=== PATIENT | male | born 1965 | race Caucasian/White ===

== ENCOUNTER 2018-11-07 10:15 | Day surgery (SDC) | payer OTHER ==
[2018-11-04 08:52] VITALS: BMI 28.5
[~2018-11-07 10:15] MED LIST: LACTATED RINGERS 1,000 ML IV SCH; LIDOCAINE 1% 20 ML VIAL (10MG/ML) FOR IV START INTRADERMA PRN
[2018-11-07 11:09] VITALS: TEMP 98.6
[2018-11-07] MEDS ORDERED: PROPOFOL 10 MG/ML 20 ML VIAL IV ONE (11:44)
[2018-11-07] MEDS ORDERED: LIDOCAINE 1% INJ 10MG/ML (20 ML MDV) ONE (11:44)
--- NOTE | 2018-11-07 12:19 | P.PCN ---
Date of Procedure: 11/07/18 Procedure(s) Performed: Procedure: Total colonoscopy. Preoperative diagnosis: Screening for neoplasia . Postoperative diagnosis: Sigmoid diverticulosis with no evidence of acute diverticulitis, strictures, polyps or cancer. Preparation: HalfLytely prep. Sedation: Was provided by anesthesia. Brief clinical history: The patient is a 53-year-old male who is scheduled for this evaluation for screening for neoplasia age being his risk factor. There is no family history of colon cancer. The patient has no abdominal complaints, bleeding or anemia. This would be his first colonoscopy. Procedure: With the patient on his left lateral decubitus position and after informed consent and adequate sedation, the perianal area was inspected and it did not show any fissures or fistulas. There were no masses felt on digital rectal examination. The Olympus CFH 190L video colonoscope was then inserted in the rectum in the usual fashion and advanced to the cecum. There were multiple diverticular orifices seen scattered the sigmoid with no evidence of acute diverticulitis or strictures. No polyps or tumors were seen. I retroflexed the endoscope in the rectum before the endoscope was withdrawn. The patient tolerated the procedure well. Plan: The patient was reassured. Discussed dietary measures. He will follow up with you as planned and I recommended repeat exam in 10 years.
[2018-11-07 12:29] VITALS: BP 116/86; PULSE 70; RESP 18
== END 2018-11-07 12:39 | disposition home or self-care (01) ==
LOC: ORWHC2ENDO 10:15
DX: Z12.11 Encounter for screening for malignant neoplasm of colon (principal); K57.30 Diverticulosis of large intestine without perforation or abscess without bleeding; M19.90 Unspecified osteoarthritis, unspecified site; I10 Essential (primary) hypertension; E78.5 Hyperlipidemia, unspecified; Z79.82 Long term (current) use of aspirin; Z79.899 Other long term (current) drug therapy
CPT/HCPCS: J2001; J2704; G0121; 45378

== ENCOUNTER 2023-12-15 15:46 | Observation (INO) | payer OTHER ==
[2023-12-15 16:10] VITALS: TEMP 97.9
[2023-12-15 16:48] LABS: Basophils % (A) 0 %; Eosinophils # (A) 0.1 k/uL (0-0.7); Eosinophils % (A) 1 %; HCT 45.9 % (39.0-53.0); HGB 15.8 gm/dL (13.0-17.5); Lymphocytes % (A) 22 %; MCH 31.9 pg (25.0-35.0); MCHC 34.3 g/dL (31.0-37.0); MCV 92.9 fL (80.0-100.0); Mean Platelet Volume 7.2; Monocytes # (A) 0.8 k/uL (0-1.0); Monocytes % (A) 8 %; Neutrophils % (A) 66 %; Platelet Count 298 k/uL (150-450); RBC 4.94 m/uL (4.30-5.90); RDW 12.5 % (11.5-15.5); WBC 9.2 k/uL (3.8-10.6)
--- NOTE | 2023-12-15 16:52 | ED ---
Chest Pain HPI - General Source: patient, RN notes reviewed Mode of arrival: ambulatory Limitations: no limitations <Debbie Lindquist - Last Filed: 12/15/23 16:51> <Christiano Diggs - Last Filed: 12/15/23 22:27> - General Chief Complaint: Chest Pain Stated Complaint: chest pain Time Seen by Provider: 12/15/23 16:00 - History of Present Illness Initial Comments: Quick Note-this is a 58-year-old female presents emergency department chief complaint of chest tightness and pain over the past 2 days. He states this pain has been constant but is worsened over the past few hours. He states that this radiates into his back. He endorses pleuritic chest pain as well. He has history of hypertension, high cholesterol, and smokes roughly a pack a day. Denies personal history of heart attack or stroke. (Debbie Lindquist) Dictation was produced using [employer] dictation software. please excuse any gr ammatical, word or spelling errors. Chief Complaint: 58-year-old male presents with chest pain History of Present Illness: Patient is 50-year-old male presents emergency department chest pain. Patient states that today he had an episode of chest pressure that was associated with diaphoresis and nausea. Patient allegedly had a recent CT that was done for his lungs that there was incidental findings of severe coronary artery calcifications. 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 Today he had this chest pressure. States that it resolved while he was waiting in the ER. Patient is pain-free at the bedside. Patient has history of tobacco use. No other comorbidities noted. Denies any family history of heart attacks. The ROS documented in this emergency department record has been reviewed and confirmed by me. Those systems with pertinent positive or negative responses have been documented in the HPI. All other systems are other negative and/or noncontributory. (Christiano Diggs) - Related Data Home Medications Medication Instructions Recorded Confirmed Aspirin [Adult Low Dose Aspirin EC] 81 mg PO DAILY 07/17/16 11/07/18 Nebivolol HCl [Bystolic] 10 mg PO 1500 10/06/18 11/04/18 Simvastatin 40 mg PO 1500 10/06/18 11/04/18 Allergies Allergy/AdvReac Type Severity Reaction Status Date / Time No Known Allergies Allergy Verified 12/15/23 16:10 Review of Systems ROS Other: All systems not noted in ROS Statement are negative. <Debbie Lindquist - Last Filed: 12/15/23 16:51> ROS Other: All systems not noted in ROS Statement are negative. <Christiano Diggs - Last Filed: 12/15/23 22:27> ROS Statement: Those systems with pertinent positive or pertinent negative responses have been documented in the HPI. Past Medical History Past Medical History: Hyperlipidemia, Hypertension, Osteoarthritis (OA) History of Any Multi-Drug Resistant Organisms: None Reported Additional Past Surgical History / Comment(s): SX FOR DEVIATED SEPTUM, PILONOIDAL CYST. Past Anesthesia/Blood Transfusion Reactions: No Reported Reaction Past Psychological History: No Psychological Hx Reported Smoking Status: Current every day smoker Past Alcohol Use History: Daily Past Drug Use History: Marijuana - Past Family History Mother Family Medical History: Cancer, CVA/TIA Additional Family Medical History / Comment(s): BREAST CANCER. <Debbie Lindquist - Last Filed: 12/15/23 16:51> General Exam Limitations: no limitations <Debbie Lindquist - Last Filed: 12/15/23 16:51> <Christiano Diggs - Last Filed: 12/15/23 22:27> - General Exam Comments Initial Comments: Visual Physical Exam Vital signs reviewed General: Well-appearing, nontoxic, no acute distress. Head: Normocephalic, atraumatic Eyes: PERRLA, EOMI ENT: Airway patent Chest: Nonlabored breathing Skin: No visual rash, normal skin tone Neuro: Alert and oriented 3 Musculoskeletal: No gross abnormalities (Debbie Lindquist) PHYSICAL EXAM: General Impression: Alert and oriented x3, not in acute distress HEENT: Normocephalic atraumatic, extra-ocular movements intact, pupils equal and reactive to light bilaterally, mucous membranes moist. Cardiovascular: Heart regular rate and rhythm Chest: Able to complete full sentences, no retractions, no tachypnea, diffuse lung rhonchi Abdomen: abdomen soft, non-tender, non-distended, no organomegaly Musculoskeletal: Pulses present and equal in all extremities, no peripheral edema Motor: no focal deficits noted Neurological: CN II-XII grossly intact, no focal motor or sensory deficits noted Skin: Intact with no visualized rashes Psych: Normal affect and mood (Christiano Diggs) Course Vital Signs 12/15/23 16:05 Temperature 97.9 F Pulse Rate 85 Respiratory 16 Rate Blood Pressure 144/92 O2 Sat by Pulse 99 Oximetry Chest Pain MDM <Debbie Lindquist - Last Filed: 12/15/23 16:51> <Christiano Diggs - Last Filed: 12/15/23 22:27> - MDM I completed the quick note portion of this chart signed Debbie Lindquist PA-C (Debbie Lindquist) Was pt. sent in by a medical professional or institution ([facility], [facility], urgent care, hospital, or [place] health care facility...) When possible be specific @ -No Did you speak to anyone other than the patient for history (EMS, parent, family, police, friend...)? What history was obtained from this source @ -No Did you review nursing and triage notes (agree or disagree)? Why? @ -I reviewed and agree with nursing and triage notes Were old charts reviewed (outside hosp., previous admission, EMS record, old EKG, old radiological studies, urgent care reports/EKG's, [place] health care facility records)? Report findings @ -No old charts were reviewed Differential Diagnosis (chest pain, altered mental status, abdominal pain women, abdominal pain men, vaginal bleeding, musculoskeletal, weakness, fever, dyspnea, syncope, headache, dizziness, GI bleed, back pain, seizure, CVA, palpatations, mental health)? @ -Differential Chest Pain: Stable Angina, Unstable Angina, STEMI, NSTEMI Aortic Dissection, Pneumothorax, Musculoskeletal, Esophageal Spasm GERD, Cholecystitis, Pancreatitis, Zoster, this is not meant to be an all-inclusive list. EKG interpreted by me (3pts min.). @ -My EKG interpretation: Ventricular rate 77, sinus rhythm,. 164, QRS 87, QTc 4 7. No VA prolongation, no QTC prolongation, no ST or T-wave changes noted. . Overall, this EKG is unremarkable X-rays interpreted by me (1pt min.). @ -Chest x-ray is nonacute CT interpreted by me (1pt min.). @ -None done U/S interpreted by me (1pt. min.). @ -None done What testing was considered but not performed or refused? (CT, X-rays, U/S, labs)? Why? @ -None What meds were considered but not given or refused? Why? @ -None Did you discuss the management of the patient with other professionals (professionals i.e. , PA, [employer], lab, RT, psych nurse, social science instructor, casino attendant, teacher, chief sales officer, welfare case worker)? Give summary @ -No Was smoking cessation discussed for >3mins.? @ -No Was critical care preformed (if so, how long)? @ -No Were there social determinants of health that impacted care today? How? (Homelessness, low income, unemployed, alcoholism, drug addiction, transportation, low edu. Level, literacy, decrease access to med. care, correction, rehab)? @ -No Was there de-escalation of care discussed even if they declined (Discuss DNR or withdrawal of care, Hospice)? DNR status @ -No What co-morbidities impacted this encounter? (DM, HTN, Smoking, COPD, CAD, Cancer, CVA, ARF, Chemo, Hep., AIDS, mental health diagnosis, sleep apnea, morbid obesity)? @ -None Was patient admitted / discharged? Hospital course, mention meds given and route, prescriptions, significant lab abnormalities, going to OR and other pertinent info. @ -50-year-old male presents emergency department with clinical presentation concerning for unstable angina. Vital signs upon arrival are within acceptable limits. EKG labs are unremarkable. Troponin is negative x 2. Chest x-ray is nonacute. Patient's heart score is high. He does have coronary artery disease will be admitted to observation consultation to cardiology. Undiagnosed new problem with uncertain prognosis? @ -No Drug Therapy requiring intensive monitoring for toxicity (Heparin, Nitro, Insulin, Cardizem)? @ -No Were any procedures done? @ -No Diagnosis/symptom? Acute, or Chronic, or Acute on Chronic? Uncomplicated (without systemic symptoms) or Complicated (systemic symptoms)? @ -Acute coronary syndrome Side effects of treatment? @ -No Exacerbation, Progression, or Severe Exacerbation? @ -No Poses a threat to life or bodily function? How? (Chest pain, USA, CT, pneumonia, PE, COPD, DKA, ARF, appy, cholecystitis, CVA, Diverticulitis, Homicidal, Suicidal, threat to staff... and all critical care pts) @ -yes (Christiano Diggs) Disposition <Debbie Lindquist - Last Filed: 12/15/23 16:51> Decision Time: 22:27 <Christiano Diggs - Last Filed: 12/15/23 22:27> Clinical Impression: ACS (acute coronary syndrome) Disposition: ADMITTED IP TO THIS HOSP Condition: Fair Referrals: Michael Wyman MD [Primary Care Provider] - 1-2 days
[2023-12-15 16:57] LABS: INR 0.9 (<1.2)
[2023-12-15 16:58] LABS: Partial Thromboplastin Time 23.4 sec (22.0-30.0); Prothrombin Time 10.1 sec (10.0-12.5)
[2023-12-15 16:59] LABS: ALT 31 U/L (4-49); African American GFR (CKD) >90 (>60 ml/min/1.73 sqM); Albumin 4.8 g/dL (3.5-5.0); Anion Gap 7 mmol/L; Blood Urea Nitrogen 26 mg/dL (9-20); Calcium 9.7 mg/dL (8.4-10.2); Carbon Dioxide 29 mmol/L (22-30); Chloride 103 mmol/L (98-107); Glucose 96 mg/dL (74-99); Non-African American GFR(CKD) >90 (>60 ml/min/1.73 sqM); Sodium 139 mmol/L (137-145); Total Bilirubin 1.1 mg/dL (0.2-1.3); Total Protein 7.6 g/dL (6.3-8.2)
[2023-12-15 17:12] LABS: AST 49 U/L (17-59); Alkaline Phosphatase 82 U/L (38-126)
[2023-12-15 17:13] LABS: Magnesium 2.2 mg/dL (1.6-2.3)
--- NOTE | 2023-12-15 20:52 | XR ---
EXAMINATION TYPE: XR chest 2V DATE OF EXAM: 12/15/2023 8:43 PM CLINICAL INDICATION:Male, 58 years old with history of Chest Pain; [facility] COMPARISON: None TECHNIQUE: XR chest 2V Frontal and lateral views of the chest. FINDINGS: Lungs/Pleura: There is no evidence of pleural effusion, focal consolidation, or pneumothorax. Pulmonary vascularity: Unremarkable. Heart/mediastinum: Cardiomediastinal silhouette is unremarkable. Musculoskeletal: No acute osseous pathology. IMPRESSION: No acute cardiopulmonary disease/process.
[2023-12-15] MEDS ORDERED: NITROGLYCERIN SL TABS 0.4 MG TAB SUBLINGUAL PRN (22:23)
[2023-12-15] MEDS: ASPIRIN 81 MG PO STA (22:52)
[2023-12-16] MEDS: ASPIRIN 325 MG TAB PO SCH (09:11)
[2023-12-16] MEDS: ASPIRIN 81 MG PO SCH (09:59)
[2023-12-16] MEDS: ATORVASTATIN 80 MG TAB PO SCH (10:14)
[2023-12-16] MEDS: LOSARTAN 50 MG TAB PO SCH (10:14)
[2023-12-16 10:51] LABS: Chol/HDL Ratio 3.25 Ratio; LDL Cholesterol,Calculated 87.4 mg/dL (0.0-131.0)
[2023-12-16] MEDS ORDERED: ACETAMINOPHEN TAB 325 MG TAB PO PRN (11:48)
--- NOTE | 2023-12-16 13:01 | P.CRDCN ---
History of Present Illness History of present illness: This is Dr. Greer dictating a consult on this patient The patient was interviewed and examined IMPRESSION / ASSESSMENT: Constant chest discomfort for 3 days in the setting of mild hypertension Known coronary artery disease by verbal description of coronary calcification by his on a CT scan that was done at an outside hospital Hypertension Dyslipidemia on statins with an LDL of 87 Current smoker PLAN: 2D echo and Doppler study to assess cardiac structure and function CTA to assess the aorta, thoracic, for dissection Maximize statins Angiotensin receptor blockers in addition to chlorthalidone for hypertension management If his 2D echo was normal and CTA does not show any evidence for aortic dissection, he may go home and follow-up with me as an outpatient He should be discharged on 80 mg of atorvastatin at least 50 mg of Cozaar a baby aspirin HPI Severe chest discomfort for the last 3 days No associated symptoms For serial cardiac enzymes were drawn and they are all normal Chest x-ray is normal Twelve-lead EKG normal no ST segment abnormalities Second twelve-lead EKG normal The patient complained of constant discomfort for the last 2 days which was wo rse for a few hours prior to presentation and radiated through into his back There was a pleuritic component He has hypertension dyslipidemia and he smokes a pack cigarettes a day He was told he had an incidental finding of severe coronary calcification ROS: No fever chills or rigors, no cough, phlegm or expectoration, no nausea, vomiting or diarrhea, no hematuria, dysuria, no musculoskeletal complaints, no strokes or seizures, no skin lesions. EXAMINATION: 144/92 mmHg pulse rate in the 80s afebrile Breath sounds are clear Heart sounds S1-S2 normal Patient looks comfortable No breathing trouble no orthopnea PND no lower extremity edema abdomen is soft nontender REVIEW OF LABS, ECG & MEDICAL DATA Normal white count Hemoglobin normal at 15,000 normal platelet count Sodium 139, potassium 4.0 BUN 26 and creatinine 0.9 4 serial troponins were drawn and they are all normal despite presenting with 3 days of severe chest discomfort Triglycerides 117, total cholesterol 160, LDL 87, HDL 49 Past Medical History Past Medical History: Hyperlipidemia, Hypertension, Osteoarthritis (OA) History of Any Multi-Drug Resistant Organisms: None Reported Additional Past Surgical History / Comment(s): SX FOR DEVIATED SEPTUM, PILONOIDAL CYST. Past Anesthesia/Blood Transfusion Reactions: No Reported Reaction Past Psychological History: No Psychological Hx Reported Smoking Status: Current every day smoker Past Alcohol Use History: Daily Past Drug Use History: Marijuana - Past Family History Mother Family Medical History: Cancer, CVA/TIA Additional Family Medical History / Comment(s): BREAST CANCER. Medications and Allergies Home Medications Medication Instructions Recorded Confirmed Type Aspirin [Adult Low Dose Aspirin EC] 81 mg PO HS 07/17/16 12/16/23 History Acetaminophen [Tylenol 8 Hour] 650 mg PO Q8H PRN 12/16/23 12/16/23 History Atorvastatin [Lipitor] 40 mg PO HS 12/16/23 12/16/23 History Chlorthalidone [Hygroton] 25 mg PO DAILY 12/16/23 12/16/23 History Nebivolol HCl [Bystolic] 20 mg PO HS 12/16/23 12/16/23 History Allergies Allergy/AdvReac Type Severity Reaction Status Date / Time No Known Allergies Allergy Verified 12/16/23 07:11 Physical Exam Vitals: Vital Signs Temp Pulse Resp BP Pulse Ox 12/16/23 10:17 67 18 130/91 97 12/16/23 07:36 73 19 141/94 96 12/16/23 02:00 70 18 110/70 98 12/15/23 16:05 97.9 F 85 16 144/92 99 Intake and Output 12/15/23 12/16/23 12/16/23 22:59 06:59 14:59 Other: Weight 86.183 kg Results 12/15/23 16:28 12/15/23 16:28 Cardiac Enzymes 12/15/23 12/15/23 12/15/23 Range/Units 16:28 16:28 21:12 AST 49 (17-59) U/L Troponin I <0.012 <0.012 (0.000-0.034) ng/mL 12/15/23 12/16/23 Range/Units 23:43 03:29 AST (17-59) U/L Troponin I <0.012 <0.012 (0.000-0.034) ng/mL Coagulation 12/15/23 Range/Units 16:28 PT 10.1 (10.0-12.5) sec APTT 23.4 (22.0-30.0) sec Lipids 12/16/23 Range/Units 03:29 Triglycerides 117.00 (0.00-149.00) mg/dL Cholesterol 160.00 (0.00-200.00) mg/dL HDL Cholesterol 49.20 (40.00-60.00) mg/dL Cholesterol/HDL Ratio 3.25 Ratio CBC 12/15/23 Range/Units 16:28 WBC 9.2 (3.8-10.6) k/uL RBC 4.94 (4.30-5.90) m/uL Hgb 15.8 (13.0-17.5) gm/dL Hct 45.9 (39.0-53.0) % Plt Count 298 (150-450) k/uL Comprehensive Metabolic Panel 12/15/23 Range/Units 16:28 Sodium 139 (137-145) mmol/L Potassium 4.0 (3.5-5.1) mmol/L Chloride 103 (98-107) mmol/L Carbon Dioxide 29 (22-30) mmol/L BUN 26 H (9-20) mg/dL Creatinine 0.89 (0.66-1.25) mg/dL Glucose 96 (74-99) mg/dL Calcium 9.7 (8.4-10.2) mg/dL AST 49 (17-59) U/L ALT 31 (4-49) U/L Alkaline Phosphatase 82 (38-126) U/L Total Protein 7.6 (6.3-8.2) g/dL Albumin 4.8 (3.5-5.0) g/dL Current Medications Generic Name Dose Route Start Last Admin Trade Name Freq PRN Reason Stop Dose Admin Acetaminophen 650 mg 12/16/23 11:48 Acetaminophen Tab 325 Mg Tab PO Q8H PRN Pain Aspirin 81 mg 12/17/23 09:00 Aspirin 81 Mg PO DAILY [facility] Atorvastatin Calcium 80 mg 12/16/23 09:30 12/16/23 10:14 Atorvastatin 80 Mg Tab PO 80 mg DAILY [facility] Administration Losartan Potassium 50 mg 12/16/23 09:45 12/16/23 10:14 Losartan 50 Mg Tab PO 50 mg DAILY [facility] Administration Intake and Output 12/15/23 12/16/23 12/16/23 22:59 06:59 14:59 Other: Weight 86.183 kg 12/15/23 16:28 12/15/23 16:28
[2023-12-16 13:14] VITALS: RESP 16
--- NOTE | 2023-12-16 13:26 | P.HPIM ---
History of Present Illness Patient is a 58-year-old male came with complaints of chest pain in the retrosternal area without any radiation shortness of breath or lightheadedness, going on for about 3 days patient still has a pain troponins are negative EKG did not show any acute ST-T wave changes. Patient blood pressure is well- controlled on nebivolol and chlorthalidone. Patient does not have any fever chills nausea vomiting abdominal pain troponins are negative. Patient chest pain is noncardiac in nature patient does have pain in the back as well with the tenderness in the back. Patient does smoke a pack of cigarettes a day. Patient chest pain is nonpleuritic not associate with food. REVIEW OF SYSTEMS: CONSTITUTIONAL: No fever, no malaise, no fatigue. HEENT: No recent visual problems or hearing problems. Denied any sore throat. CARDIOVASCULAR: No orthopnea, PND, no palpitations, no syncope. PULMONARY: No shortness of breath, no cough, no hemoptysis. GASTROINTESTINAL: No diarrhea, no nausea, no vomiting, no abdominal pain. NEUROLOGICAL: No headaches, no weakness, no numbness. HEMATOLOGICAL: Denies any bleeding or petechiae. GENITOURINARY: Denies any burning micturition, frequency, or urgency. MUSCULOSKELETAL/RHEUMATOLOGICAL: Denies any joint pain, swelling, or any muscle pain. ENDOCRINE: Denies any polyuria or polydipsia. The rest of the 14-point review of systems is negative. PHYSICAL EXAMINATION: GENERAL: The patient is alert and oriented x3, not in any acute distress. Well developed, well nourished. HEENT: Pupils are round and equally reacting to light. EOMI. No scleral icterus. No conjunctival pallor. Normocephalic, atraumatic. No pharyngeal erythema. No thyromegaly. CARDIOVASCULAR: S1 and S2 present. No murmurs, rubs, or gallops. PULMONARY: Chest is clear to auscultation, no wheezing or crackles. ABDOMEN: Soft, nontender, nondistended, normoactive bowel sounds. No palpable organomegaly. MUSCULOSKELETAL: No joint swelling or deformity. Patient does have tenderness in the lower thoracic and mid thoracic areas EXTREMITIES: No cyanosis, clubbing, or pedal edema. NEUROLOGICAL: Gross neurological examination did not reveal any focal deficits. SKIN: No rashes. Assessment and plan -Chest pain rule out acute coronary syndromes patient is undergoing echocardiogram if that within normal limits patient was cleared for discharge. We also obtain CT angio of the chest rule out pulmonary embolism and aortic dissection as recommended by cardiology. -Hypertension patient blood pressure is well-controlled patient will be resumed on home regimen follow-up with PCP and cardiology as an outpatient patient was asked to check the blood pressure 3 times a day at home and write down the readings and take it to PCP's outpatient receptionist telephone operator office for titration of blood pressure medications -Hyperlipidemia LDL is 87 cardiology is recommending increasing statin from 40 to 80 mg -coronary artery disease with coronary calcification on CT scan as per receptionist telephone operator documentation- -Nicotine use: Counseling was provided If echocardiogram is within normal limits CT angio of the chest does not show an y significant abnormality patient will be discharged today Past Medical History Past Medical History: Hyperlipidemia, Hypertension, Osteoarthritis (OA) History of Any Multi-Drug Resistant Organisms: None Reported Additional Past Surgical History / Comment(s): SX FOR DEVIATED SEPTUM, PILONOIDAL CYST. Past Anesthesia/Blood Transfusion Reactions: No Reported Reaction Past Psychological History: No Psychological Hx Reported Smoking Status: Current every day smoker Past Alcohol Use History: Daily Past Drug Use History: Marijuana - Past Family History Mother Family Medical History: Cancer, CVA/TIA Additional Family Medical History / Comment(s): BREAST CANCER. Medications and Allergies Home Medications Medication Instructions Recorded Confirmed Type Aspirin [Adult Low Dose Aspirin EC] 81 mg PO HS 07/17/16 12/16/23 History Acetaminophen [Tylenol 8 Hour] 650 mg PO Q8H PRN 12/16/23 12/16/23 History Atorvastatin [Lipitor] 80 mg PO DAILY #30 tab 12/16/23 Rx Chlorthalidone [Hygroton] 25 mg PO DAILY 12/16/23 12/16/23 History Nebivolol HCl [Bystolic] 20 mg PO HS 12/16/23 12/16/23 History Allergies Allergy/AdvReac Type Severity Reaction Status Date / Time No Known Allergies Allergy Verified 12/16/23 07:11 Physical Exam Vitals: Vital Signs Temp Pulse Resp BP Pulse Ox 12/16/23 13:14 76 16 132/94 96 12/16/23 10:17 67 18 130/91 97 12/16/23 07:36 73 19 141/94 96 12/16/23 02:00 70 18 110/70 98 12/15/23 16:05 97.9 F 85 16 144/92 99 Intake and Output 12/15/23 12/16/23 12/16/23 22:59 06:59 14:59 Other: Weight 86.183 kg Results CBC & Chem 7: 12/15/23 16:28 12/15/23 16:28 Labs: Abnormal Lab Results - Last 24 Hours (Table) 12/15/23 Range/Units 16:28 BUN 26 H (9-20) mg/dL
--- NOTE | 2023-12-16 13:37 | P.DS ---
Providers Date of admission: 12/15/23 22:23 Attending physician: Mariana Domingo Consults: 12/15/23 22:23 Consult Physician Urgent Consulting Provider: Enio Lee Consult Reason/Comments: chest pain Do you want consulting provider notified?: Yes Primary care physician: Garo [facility] Course: Patient is a 58-year-old male came with complaints of chest pain in the retrosternal area without any radiation shortness of breath or lightheadedness, going on for about 3 days patient still has a pain troponins are negative EKG did not show any acute ST-T wave changes. Patient blood pressure is well- controlled on nebivolol and chlorthalidone. Patient does not have any fever chills nausea vomiting abdominal pain troponins are negative. Patient chest pain is noncardiac in nature patient does have pain in the back as well with the tenderness in the back. Patient does smoke a pack of cigarettes a day. Patient chest pain is nonpleuritic not associate with food. PHYSICAL EXAMINATION: GENERAL: The patient is alert and oriented x3, not in any acute distress. Well developed, well nourished. HEENT: Pupils are round and equally reacting to light. EOMI. No scleral icterus. No conjunctival pallor. Normocephalic, atraumatic. No pharyngeal erythema. No thyromegaly. CARDIOVASCULAR: S1 and S2 present. No murmurs, rubs, or gallops. PULMONARY: Chest is clear to auscultation, no wheezing or crackles. ABDOMEN: Soft, nontender, nondistended, normoactive bowel sounds. No palpable organomegaly. MUSCULOSKELETAL: No joint swelling or deformity. Patient does have tenderness i n the lower thoracic and mid thoracic areas EXTREMITIES: No cyanosis, clubbing, or pedal edema. NEUROLOGICAL: Gross neurological examination did not reveal any focal deficits. SKIN: No rashes. Assessment and plan -Chest pain rule out acute coronary syndromes patient is undergoing echocardiogram if that within normal limits patient was cleared for discharge. We also obtain CT angio of the chest rule out pulmonary embolism and aortic dissection as recommended by cardiology. 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 office for titration of blood pressure medications -Hyperlipidemia LDL is 87 cardiology is recommending increasing statin from 40 to 80 mg -coronary artery disease with coronary calcification on CT scan as per dry wall sprayer documentation- -Nicotine use: Counseling was provided If echocardiogram is within normal limits CT angio of the chest does not show any significant abnormality patient will be discharged today Patient Condition at Discharge: Fair Plan - Discharge Summary New Discharge Prescriptions: New Atorvastatin [Lipitor] 80 mg PO DAILY #30 tab Continue Aspirin [Adult Low Dose Aspirin EC] 81 mg PO HS Chlorthalidone [Hygroton] 25 mg PO DAILY Nebivolol HCl [Bystolic] 20 mg PO HS Acetaminophen [Tylenol 8 Hour] 650 mg PO Q8H PRN PRN Reason: Pain Discontinued Atorvastatin [Lipitor] 40 mg PO HS Discharge Medication List Aspirin [Adult Low Dose Aspirin EC] 81 mg PO HS 07/17/16 [History] Acetaminophen [Tylenol 8 Hour] 650 mg PO Q8H PRN 12/16/23 [History] Atorvastatin [Lipitor] 80 mg PO DAILY #30 tab 12/16/23 [Rx] Chlorthalidone [Hygroton] 25 mg PO DAILY 12/16/23 [History] Nebivolol HCl [Bystolic] 20 mg PO HS 12/16/23 [History] Follow up Appointment(s)/Referral(s): Michael Wyman MD [Primary Care Provider] - 3 Days Discharge Disposition: HOME SELF-CARE
--- NOTE | 2023-12-16 14:02 | CT ---
EXAMINATION TYPE: CT angio chest CT DLP: 849.6 mGycm, Automated exposure control for dose reduction was used. DATE OF EXAM: 12/16/2023 1:58 PM COMPARISON: . Chest radiograph from 12/15/2023 CLINICAL INDICATION:Male, 58 years old with history of CP radiating to back, constant; chest pain rad iating around back TECHNIQUE/CONTRAST: CTA scan of the thorax is performed without and with IV Contrast, patient injected with 100 mL of Iso ann marie 370, dissection protocol. MIP and 3-D images are created and reviewed. FINDINGS: Lungs/Pleura: Mild biapical pleural-parenchymal scarring. Mild centrilobular paraseptal emphysematous changes. Calcified punctate granuloma within the left lower lobe. No suspicious pulmonary nodule or mass. No pleural effusion or pneumothorax. No focal consolidation. Airway: Large airways are patent. Heart: Heart is within normal limits for size.. Mild coronary calcifications. No pericardial effusion . Vasculature: No evidence of aortic aneurysm. Mild atherosclerotic calcification of the aorta and its branches. No evidence for aortic dissection or intramural hematoma. No evidence for pulmonary embolis m. Conventional three-vessel aortic arch. Mediastinum: No gross evidence of adenopathy. Musculoskeletal: No acute osseous abnormalities. Remote injury to the distal left clavicle from prior comminuted fracture. Remote fracture to the T1 spinous process. Soft Tissues: Unremarkable. Lower neck: No significant findings. Upper Abdomen: No significant findings.. IMPRESSION: 1. No evidence of thoracic aortic dissection or aneurysm. No evidence of pulmonary embolism. 2. Remote injuries to the distal left clavicle and T1 spinous processes. 3. Mild COPD changes.
--- NOTE | 2023-12-16 16:33 | CA ---
Transthoracic Echo Report Name: Harrison Peacock Age: 58 Gender: M : 1965 Exam Date: 12/16/2023 13:20 Exam Location: [facility] Ht (in): 67 Wt (lb): 190 Ordering Physician: Amrit Greer MD ([id number]) Attending/Referring Phys: Folder Machine Adjuster Mary Garcia RDCS Procedure CPT: Indications: HTN, CAD Cardiac Hx: Technical Quality: Fair Contrast 1: Total Dose (mL): Contrast 2: Total Dose (mL): MEASUREMENTS (Male / Female) Normal Values 2D ECHO LV Diastolic Diameter PLAX 4.4 cm 4.2 - 5.9 / 3.9 - 5.3 cm LV Systolic Diameter PLAX 2.6 cm IVS Diastolic Thickness 1.6 cm 0.6 - 1.0 / 0.6 - 0.9 cm LVPW Diastolic Thickness 1.5 cm 0.6 - 1.0 / 0.6 - 0.9 cm LV Relative Wall Thickness 0.7 RV Internal Dim ED PLAX 3.5 cm LA Volume 60.0 cm??? 18 - 58 / 22 - 52 cm??? LA Volume Index 29.4 cm???/m??? 16 - 28 cm???/m??? M-MODE Aortic Root Diameter MM 3.0 cm LA Systolic Diameter MM 3.0 cm LA Ao Ratio MM 1.0 DOPPLER AV Peak Velocity 148.2 cm/s AV Peak Gradient 8.8 mmHg AV Mean Gradient 4.2 mmHg AV Velocity Time Integral 32.0 cm LVOT Peak Velocity 108.5 cm/s LVOT Peak Gradient 4.7 mmHg LVOT Velocity Time Integral 23.5 cm Mitral E Point Velocity 61.0 cm/s Mitral A Point Velocity 56.8 cm/s Mitral E to A Ratio 1.1 MV Deceleration Time 193.0 ms TR Peak Velocity 194.0 cm/s TR Peak Gradient 15.1 mmHg Right Ventricular Systolic Press 20.1 mmHg FINDINGS Left Ventricle Moderately increased left ventricular wall thickness. Left ventricular cavity size normal. Normal left ventricular systolic function with no obvious regional wall motion abnormalities. Left ventricular ejection fraction is estimated at 55-60 %. Grade 1 diastolic dysfunction. Right Ventricle Mild right ventricular dilatation. Right ventricular systolic pressure within normal limits. Right Atrium Normal right atrial size. Left Atrium Mildly increased left atrial volume. Mitral Valve Structurally normal mitral valve. No evidence for mitral valve prolapse. No mitral stenosis. Trace mitral regurgitation. Aortic Valve Trileaflet aortic valve. No aortic valve stenosis or regurgitation. Tricuspid Valve Structurally normal tricuspid valve. Mild tricuspid regurgitation. Pulmonic Valve Structurally normal pulmonic valve. Trace pulmonic regurgitation. Pericardium No pericardial effusion. Aorta Normal size aortic root and proximal ascending aorta. CONCLUSIONS Normal LV size and systolic function Previewed by: Dr. Amrit Greer MD (Electronically Signed) Final Date: 16 December 2023 16:32
[2023-12-16 16:42] VITALS: BP 141/90; PULSE 84
[2023-12-17] MEDS ORDERED: hydroCHLOROthiazide 25 MG TAB PO SCH (09:00)
[2023-12-17] MEDS ORDERED: ASPIRIN 81 MG PO SCH (09:00)
== END 2023-12-16 16:40 | disposition home or self-care (01) ==
LOC: EC 15:46 → 6NMEDSUR 22:23
PROVIDERS: ADMIT Hospitalist; ATTEND Hospitalist
DX: R07.89 Other chest pain (principal); E78.00 Pure hypercholesterolemia, unspecified; I10 Essential (primary) hypertension; I25.10 Atherosclerotic heart disease of native coronary artery without angina pectoris; F17.210 Nicotine dependence, cigarettes, uncomplicated; Z79.82 Long term (current) use of aspirin; Z79.899 Other long term (current) drug therapy
CPT/HCPCS: 99285; 36415; 93005 ×2; 93306; 80061; 80053; 83735; 84484 ×2; 85025; 85610; 85730; 71046; 71275; G0378 ×2; Q9967

== ENCOUNTER → 2024-02-07 | Outpatient (CLI) | payer OTHER | END | disposition home or self-care (01) | LOC: RADNMMAIN 09:00 | PROVIDERS: ATTEND Internal Medicine Clinical Cardiac Electrophysiology | DX: I25.10 Atherosclerotic heart disease of native coronary artery without angina pectoris (principal) | CPT/HCPCS: 93351 ==